=== PATIENT | male | born 1955 | race Caucasian/White ===

== ENCOUNTER → 2018-07-02 | Outpatient (CLI) | payer BC ==
[~2018-07-02] MED LIST: ACET-1600 PO; ASPI-515 PO; ASPI325T17 PO; CALC-471 PO; CELE200C PO; GLUCOSAMINE SULFATE PO; HYDR-3237 PO; HYDR25TA6 PO; MAGNESIUM PO; METO-95 PO; METO25TA2 PO; MULT-516 PO; NAPR220C2 PO; UBID100C41 PO; VITA1TAB3 PO; VITAMIN C PO; [UNRECOGNIZED DRUG - CODE] PO
== END | disposition home or self-care (01) ==
LOC: CVU 15:08
PROVIDERS: ATTEND Internal Medicine Cardiovascular Disease
DX: I11.9 Hypertensive heart disease without heart failure (principal); I47.1 Supraventricular tachycardia; Q25.49 Other congenital malformations of aorta
CPT/HCPCS: 93306

== ENCOUNTER 2018-07-26 13:58 | Emergency (ER) | payer BC ==
[~2018-07-26] VITALS: Ht 177.8 cm; Wt 106.0 kg
[~2018-07-26 13:58] MED LIST changes: +ADENOSINE 6 MG/2 ML ONE
[2018-07-26] MEDS ORDERED: PLEASE ENTER HEIGHT AND WEIGHT MC SCH (14:30)
[2018-07-26] MEDS ORDERED: ADENOSINE 6 MG/2 ML IVPush ONE ×2 (14:30)
[2018-07-26] MEDS ORDERED: SODIUM CHLORIDE 0.9% 1,000ML IVBOLUS ONE (14:30)
[2018-07-26 14:37] LABS: BASOPHILS # (AUTO) 0.03 x10^3/uL (0-0.1); BASOPHILS % (AUTO) 0 % (0-1); EOSINOPHILS # (AUTO) 0.24 x10^3/uL (0-0.4); EOSINOPHILS % (AUTO) 3 % (1-7); LYMPHOCYTES # (AUTO) 1.88 x10^3/uL (1-3.4); LYMPHOCYTES % (AUTO) 20 % (22-44); MD NO; MEAN CORPUSCULAR HEMOGLOBIN 30.5 pg (27.5-34.5); MEAN CORPUSCULAR HGB CONC 33.9 g/dL (33.2-36.2); MEAN CORPUSCULAR VOLUME 89.8 fL (81-97); MEAN PLATELET VOLUME 8.2 fL (7.4-10.4); MONOCYTES # (AUTO) 1.28 x10^3/uL (0.2-0.8); MONOCYTES % (AUTO) 14 % (2-9); NEUTROPHILS # (AUTO) 5.92 x10^3/uL (1.8-6.8); NEUTROPHILS % (AUTO) 63 % (42-75); PLATELET COUNT 214 x10^3/uL (130-400); RED BLOOD COUNT 5.71 x10^6/uL (4.38-5.82); RED CELL DISTRIBUTION WIDTH 14.5 % (9.4-14.8)
[2018-07-26 14:46] LABS: ANION GAP 6 mmol/L (5-15); CHLORIDE 107 mmol/L (98-107); CREATININE 0.98 mg/dL (0.7-1.3)
[2018-07-26 15:23] VITALS: BP 123/75
== END 2018-07-26 15:40 | disposition home or self-care (01) ==
LOC: ED 14:47
DX: I47.1 Supraventricular tachycardia (principal); I10 Essential (primary) hypertension
CPT/HCPCS: 36415; 80048; 82040; 85025; 93005; 96374; 99285; J0153; J7030

== ENCOUNTER 2018-09-10 07:16 | Day surgery (SDC) | payer BC ==
[~2018-09-10] VITALS: Ht 177.8 cm; Wt 110.0 kg
[~2018-09-10 07:16] MED LIST changes: -ADENOSINE 6 MG/2 ML ONE
[2018-09-10] MEDS ORDERED: SODIUM CHLORIDE 0.9% 1,000 ML IV SCH (08:05)
[2018-09-10 08:06] VITALS: BP 141/92
[2018-09-10] MEDS ORDERED: FLUT9.9S INH (08:20)
[2018-09-10] MEDS ORDERED: OMEG1CAP39 PO (08:20)
[2018-09-10] MEDS ORDERED: MIDAZOLAM 1 MG/ML, 5ML ONE (10:27)
[2018-09-10] MEDS ORDERED: LIDOCAINE/PF 1%, 30ML ONE (10:28)
[2018-09-10] MEDS ORDERED: ISOPROTERENOL 0.2MG/ML, 5ML ONE (10:28)
[2018-09-10] MEDS ORDERED: ADENOSINE 6 MG/2 ML ONE (10:28)
[2018-09-10] MEDS ORDERED: FENTANYL PF 100 MCG/2ML ONE (10:28)
[2018-09-10] MEDS ORDERED: HEPARIN 1,000 UNITS/ML, 10ML ONE (10:28)
[2018-09-10] MEDS ORDERED: ACETAMINOPHEN 325 MG TABLET PO PRN (13:00)
[2018-09-10] MEDS ORDERED: CALCIUM/VITAMIN D3 250-125 TABLET PO SCH (21:00)
[2018-09-10] MEDS ORDERED: GLUCOSAMINE SULFATE 1000 MG PO SCH (21:00)
[2018-09-10] MEDS ORDERED: ASCORBIC ACID 500 MG TABLET PO SCH (21:00)
[2018-09-11] MEDS ORDERED: OMEGA-3/FISH OIL CAPSULE PO SCH (09:00)
[2018-09-11] MEDS ORDERED: UBIDECARENONE PO SCH (09:00)
[2018-09-11] MEDS ORDERED: MULTIVITAMIN 1 TABLET PO SCH (09:00)
[2018-09-11] MEDS ORDERED: MULTIVITS,STRESS FORMULA 1 TABLET PO SCH (09:00)
[2018-09-11] MEDS ORDERED: MAGNESIUM OXIDE 400 MG TABLET PO SCH (09:00)
[2018-09-11] MEDS ORDERED: METOPROLOL SUCCINATE 100 MG TAB.ER.24H PO SCH (09:00)
[2018-09-11] MEDS ORDERED: HYDROCHLOROTHIAZIDE 25 MG TABLET PO SCH (09:00)
[2018-09-11] MEDS ORDERED: ASPIRIN 81 MG TABLET EC PO SCH (09:00)
[2018-09-11] MEDS ORDERED: [UNRECOGNIZED DRUG - MIXTURE] PO SCH (09:00)
[2018-09-11] MEDS ORDERED: NAPROXEN 500 MG TABLET PO SCH (09:00)
[2018-09-11] MEDS ORDERED: FLUTICASONE NASAL SPRAY 16GM NAS SCH (09:00)
== END 2018-09-10 17:49 | disposition home or self-care (01) ==
LOC: CACL 07:16 → 5SO 13:20 → CACL 17:49
PROVIDERS: ATTEND Internal Medicine Cardiovascular Disease
DX: I47.1 Supraventricular tachycardia (principal); I48.92 Unspecified atrial flutter; I10 Essential (primary) hypertension; E78.5 Hyperlipidemia, unspecified; Z79.899 Other long term (current) drug therapy; Z79.82 Long term (current) use of aspirin
CPT/HCPCS: 93613; 93621; 93623; 93653; 93655; 99156; 99157; C1730; C1731; C1894; C2630; J2250; J3010; J3490; G0378; J0153; J1644